=== PATIENT | female | born 1990 | race Caucasian/White ===

== ENCOUNTER 2024-12-25 13:14 | Emergency (ER) | payer SELFPAY ==
[~2024-12-25] VITALS: Ht 160 cm; Wt 73.3 kg
[2024-12-25 13:20] VITALS: PULSE 89; RESP 20; TEMP 98.4
[2024-12-25] MEDS ORDERED: KETOROLAC TROMETHAMINE 30 MG/ML VIAL ONE (13:51)
[2024-12-25] MEDS: KETOROLAC TROMETHAMINE 30 MG/ML VIAL IV ONE (13:57)
[2024-12-25] MEDS: SODIUM CHLORIDE 0.9% 1000ML 1,000 ML IV STA (13:57)
[2024-12-25] MEDS ORDERED: ONDANSETRON HCL INJ 2MG/ML 2ML 2 MG/ML VIAL ONE (14:08)
[2024-12-25] MEDS: ONDANSETRON HCL INJ 2MG/ML 2ML 2 MG/ML VIAL IV ONE (14:11)
[2024-12-25] MEDS ORDERED: ONDANSETRON ODT4 MG PO (14:48)
[2024-12-25] MEDS ORDERED: KETOROLAC TROME10 MG PO (14:48)
[2024-12-25 14:53] VITALS: BP 129/77; PULSE 86; RESP 18; TEMP 97.9; O2SAT 100
== END 2024-12-25 15:05 | disposition home or self-care (01) ==
LOC: FSED 13:42
DX: R10.31 Right lower quadrant pain (principal); N13.2 Hydronephrosis with renal and ureteral calculous obstruction; R31.9 Hematuria, unspecified; I10 Essential (primary) hypertension; F41.9 Anxiety disorder, unspecified
CPT/HCPCS: 74176; 80053; 81003; 81025; 85025; 99283; J1885; J2405; J7030